=== PATIENT | male | born 1955 | race Caucasian/White ===

== ENCOUNTER 2016-08-31 05:56 | Day surgery (SDC) | payer OTHER ==
[2016-08-28 17:25] LABS: BASOPHILS 0.7 %; BASOPHILS ABSOLUTE 0.05 10/3/uL (0.0-0.16); EOSINOPHILS 21.2 %; HEMATOCRIT 37.2 % (40.0-51.0); HEMOGLOBIN 11.9 g/dL (13.6-17.8); IMMATURE GRANULOCYTES 0.1 %; IMMATURE GRANULOCYTES ABSOLUTE 0.01 10/3/uL (0.0-0.11); LYMPHOCYTES 18.7 %; LYMPHOCYTES ABSOLUTE 1.41 10/3/uL (0.67-4.30); MEAN CORPUSCULAR HEMOGLOB 25.3 pg (26.0-34.0); MEAN CORPUSCULAR VOLUME 79.1 fL (80-100); MEAN PLATELET VOLUME 10.9 fL (9.2-13.0); MONOCYTES 8.1 %; MONOCYTES ABSOLUTE 0.61 10/3/uL (0.21-1.20); NEUTROPHILS 51.2 %; NEUTROPHILS ABSOLUTE 3.86 10/3/uL (2.02-8.40); PLATELET COUNT 344 10/3/uL (150-400); RBC DISTRIBUTION WIDTH 16.2 % (12.0-16.0); WHITE BLOOD CELLS 7.5 10/3/uL (4.5-10.5)
[2016-08-28 17:26] LABS: MANUAL DIFF NO %
[2016-08-28 17:41] LABS: A/G RATIO 0.9 (0.7-1.9); ALBUMIN 3.6 G/DL (3.5-5.0); ALKALINE PHOSPHATASE 149 U/L (45-117); BUN (BLOOD UREA NITROGEN) 15 MG/DL (6-23); CALCIUM, SERUM 8.9 MG/DL (8.5-10.4); CHLORIDE, SERUM 108 MMOL/L (96-112); CO2 (CARBON DIOXIDE) 25 MMOL/L (24-34); CREATININE 0.82 MG/DL (0.70-1.30); GFR AFRICAN AMERICAN 111 ML/MIN (>=60); GFR NON AFRICAN AMERICAN 95 ML/MIN (>=60); GLOBULIN 3.9 G/DL (2.5-4.1); GLUCOSE, SERUM 97 MG/DL (60-99); POTASSIUM, SERUM 3.9 MMOL/L (3.5-5.3); SGOT(AST) 19 U/L (5-40); SGPT(ALT) 23 U/L (5-65); SODIUM, SERUM 144 MMOL/L (135-148); TOTAL BILIRUBIN 0.6 MG/DL (0-1.2); TOTAL PROTEIN 7.5 G/DL (6.0-8.5)
--- NOTE | ~2016-08-31 | OP ---
Record Of Operation [facility] [address] [place]. [address] NAME: WILFRED CHIU : 53 STATUS : [facility]#: [id number] AGE: 60 ADM/REG DATE : 08/31/16 MR#: [id number] REPORT SERV DATE: 09/02/16 DICTATED BY: ABHINAV BATISTA DATE: 09/02/16 REPORT STATUS : Draft TRANSCRIBED BY: MODL DATE: 09/02/16 DATE OF PROCEDURE: 08/31/2016 PREOPERATIVE DIAGNOSIS: Cholelithiasis. POSTOPERATIVE DIAGNOSIS: Cholelithiasis plus acute on chronic cholecystitis. PROCEDURE PERFORMED: Laparoscopic cholecystectomy. SURGEON: Abhinav Batista M.D. ANESTHESIA: General. ESTIMATED BLOOD LOSS: 5 mL. SPECIMEN REMOVED: One gallbladder. BRIEF HISTORY: Mr. Chiu is a 60-year-old, who has been experiencing recurrent bouts of epigastric and right upper abdominal pain. Outpatient imaging confirmed presence of gallstones and gallbladder wall inflammation and thickening. He presents today for cholecystectomy. FINDINGS AT THE TIME OF PROCEDURE: Mr. Chiu's gallbladder was pale, chronically and acutely inflamed. Limited examination of his liver, stomach, small and large bowel revealed no other obvious abnormalities. DETAILS OF PROCEDURE: Following informed consent, the patient was taken to the operating room and placed supine on the OR table. After successful induction of general endotracheal anesthesia, his abdomen was prepped and draped in usual sterile fashion. An umbilical skin incision was made and skin hooks were used to elevate the skin edges and anterior rectus fascia. There was a small umbilical hernia defect, and we were able to use this as a portal of entry into the abdominal cavity. A non-bladed 5 mm trocar was then inserted through this orifice and connected to insufflation tubing, and the peritoneal cavity was insufflated with carbon dioxide to a resting pressure of 15 mmHg. A 5 mm laparoscope was then introduced. The underlying bowel and vascular structures were carefully inspected and noted to be free from injury from initial trocar insertion. Three additional trocars were placed under direct visualization, a 10 mm subxiphoid epigastric trocar followed by two 5 mm trocars placed in the right upper quadrant. The gallbladder was grasped at its fundus and retracted in lateral and cephalad direction toward the patient's right shoulder blade. The infundibulum of the gallbladder was grasped and retracted inferiorly and laterally toward the patient's right anterior superior iliac spine. Cystic duct and cystic artery were dissected free from the underlying fatty peritoneal structures and once a critical view of safety was obtained and both these structures were seen to clearly transverse into the infundibulum of the gallbladder, they were both triply clipped and ligated, and divided with scissors. The gallbladder was then dissected free from the gallbladder fossa using blunt dissection and cautery. It was placed inside an endoscopic retrieval pouch and removed from Record Of Operation [address] [address] NAME: WILFRED CHIU : 53 STATUS : [facility] PAT#: [id number] AGE: 60 ADM/REG DATE : 08/31/16 MR#: [id number] REPORT SERV DATE: 09/02/16 DICTATED BY: ABHINAV BATISTA DATE: 09/02/16 REPORT STATUS : Draft TRANSCRIBED BY: REED DATE: 09/02/16 the 10 mm trocar site, intact, and without incident. Gallbladder fossa was copiously irrigated. Hemostasis was secured with cautery and there was no evidence of bile leakage from the gallbladder fossa or cystic duct stump. The two 5 mm trocars were removed followed by the 10 mm subxiphoid trocar. The sites were observed. Hemostasis was found to be secured. The peritoneal cavity was desufflated. Laparoscope was removed. Fascia at the 10 mm umbilical trocars were approximated using 0 Vicryl suture. Skin edges of all four incisions were approximated using 4-0 Monocryl subcuticular suture and Dermabond. At the completion of the case, all sponge and needle counts were correct. The patient was extubated and transferred to recovery room in satisfactory condition, having suffered no apparent perioperative complications. MADDY/REED Abhinav Batista M.D. / [id number] CC: Rivas Byrd M.D.
[~2016-08-31 05:56] MED LIST: ASAB PO; COZAAR100 MG PO; FISH-EPA1000 MG PO; HYDROCHLOROT25 MG PO; LIOR10 PO; LIPITOR10 PO; MOBIC15 MG PO; NEUR100 PO; NORV10 PO; OMEGA RED PO; PCET PO; PRILO PO; VIT PO; VITAMIN B PO
== END 2016-08-31 12:21 | disposition home or self-care (01) ==
LOC: SDC 05:56
PROVIDERS: Surgery
PROC: 0FT44ZZ Resection of Gallbladder, Percutaneous Endoscopic Approach (ICD-10-PCS; principal; 2016-08-31 08:15)
DX: K80.20 Calculus of gallbladder without cholecystitis without obstruction (principal); I10 Essential (primary) hypertension; I25.10 Atherosclerotic heart disease of native coronary artery without angina pectoris; K21.9 Gastro-esophageal reflux disease without esophagitis; E03.9 Hypothyroidism, unspecified; M79.7 Fibromyalgia; M19.90 Unspecified osteoarthritis, unspecified site; Z95.1 Presence of aortocoronary bypass graft; Z88.8 Allergy status to other drugs, medicaments and biological substances; Z79.82 Long term (current) use of aspirin; Z79.899 Other long term (current) drug therapy; Z98.890 Other specified postprocedural states
CPT/HCPCS: 36415; 80053; 85025; 88304; 93005; J0690; J1170; J2250; J2405; J2710; J3010